=== PATIENT | female | born 1970 | race Caucasian/White ===

== ENCOUNTER 2021-01-28 16:48 | Inpatient (IN) ==
[2021-01-28] MEDS ORDERED: Acetaminophen 325 MG TABLET PO PRN (21:06)
[2021-01-28] MEDS ORDERED: Naloxone 0.4 MG/ML INJ IVP PRN (21:06)
[2021-01-28] MEDS ORDERED: Perflutren Lipid Microsphere 1.3 ML in 0.9 % Sodium Chloride 8.7 ML IVP PRN (21:13)
[2021-01-28] MEDS ORDERED: 0.9 % Sodium Chloride 1,000 ML IVC SCH (21:15)
[2021-01-28] MEDS ORDERED: Norepinephrine 4 MG/254 ML IV.SOLN IVC SCH (21:15)
[2021-01-28] MEDS ORDERED: Vancomycin 1,500 MG/265 ML IV.SOLN IVPB ONE ×2 (23:00)
[2021-01-28] MEDS: Norepinephrine 4 MG/254 ML IV.SOLN IVC SCH (23:01)
[2021-01-29 00:17] LABS: Adenovirus Not Detected (Not Detect); Coronavirus 229E Not Detected (Not Detect); Coronavirus HKU1 Not Detected (Not Detect); Coronavirus NL63 Not Detected (Not Detect); Coronavirus OC43 Not Detected (Not Detect); Human Metapneumovirus Not Detected (Not Detect); Human Rhinovirus/Enterovirus Not Detected (Not Detect); Influenza A Subtype 2009 H1 Not Detected (Not Detect); Influenza B Not Detected (Not Detect); Parainfluenza Virus 1 Not Detected (Not Detect); SARS-CoV-2 Not Detected (Not Detect)
[2021-01-29 00:18] LABS: Bordetella Pertussis Not Detected (Not Detect); Chlamydophila pneumoniae Not Detected (Not Detect); Mycoplasma pneumoniae Not Detected (Not Detect); Parainfluenza Virus 2 Not Detected (Not Detect); Parainfluenza Virus 3 Not Detected (Not Detect); Parainfluenza Virus 4 Not Detected (Not Detect); Respiratory Syncytial Virus Not Detected (Not Detect)
[2021-01-29] MEDS: Piperacillin/Tazobactam 3.375 GM in 0.9 % Sodium Chloride Mini Bag 100 ML IVPB SCH ×3 (00:42→15:49)
[2021-01-29 02:31] LABS: Red Cell Distribution Width 12.8 % (11.5-14.5); Segmented Neutrophils % 85.8 %
[2021-01-29 02:33] LABS: Basophils % 0.3 %; Eosinophils % 0.2 %; Hematocrit 33.1 % (35.3-44.9); Immature Platelets 13.6 % (1.1-6.1); Lymphocytes # 0.6 K/mcL (0.6-4.6); Lymphocytes % 9.2 %; Mean Corpuscular HGB Conc 36.3 g/dL (31.6-35.5); Mean Corpuscular Hemoglobin 33.3 pg (28.0-33.3); Mean Corpuscular Volume 91.9 fL (83.0-100.0); Mean Platelet Volume 12.9 fL (9.4-12.4); Monocytes # 0.2 K/mcL (0.0-1.3); Monocytes % 3.5 %; Neutrophils # 5.3 K/mcL (1.6-8.9); White Blood Count 6.2 K/mcL (4.3-11.1)
[2021-01-29 02:37] LABS: Platelet Count 62 K/mcL (140-400)
[2021-01-29 02:41] LABS: INR 1.6; Prothrombin Time 18.2 Seconds (9.4-12.1)
[2021-01-29 02:54] LABS: Amylase 48 Units/L (29-103); Lipase 125 Units/L (11-82)
[2021-01-29 03:10] LABS: Alkaline Phosphatase 91 Units/L (34-104); BUN/Creatinine Ratio 19 (6-26); Bilirubin,Direct 2.6 mg/dL (0.0-0.2); Bilirubin,Indirect 1.1 mg/dL (0.0-1.0); Bilirubin,Total 3.7 mg/dL (0.3-1.0); Blood Urea Nitrogen 16 mg/dL (6-20); Calcium 6.8 mg/dL (8.6-10.3); Carbon Dioxide 19 mEq/L (23-29); Chloride 97 mEq/L (98-107); Glucose 105 mg/dL (70-105); Magnesium 1.9 mg/dL (1.6-2.6); Osmolality,Calculated 264 (280-300); Potassium 3.3 mEq/L (3.5-5.1); Sodium 126 mEq/L (136-145); eGFR For African Americans > 60 (> 60); eGFR For Non-African Americans > 60 (> 60)
[2021-01-29 03:11] LABS: Alanine Aminotransferase 339 Units/L (7-52); Albumin 2.5 g/dL (3.5-5.7); Albumin/Globulin Ratio 1.1 (1.1-2.2); Aspartate Amino Transferase 1297 Units/L (13-39); Globulin 2.3 g/dL (2.4-3.5); Platelet Estimate Decreased (Normal); Total Protein 4.8 g/dL (6.4-8.9)
[2021-01-29] MEDS ORDERED: 0.9 % Sodium Chloride 1,000 ML IVC SCH ×2 (03:30→10:48)
[2021-01-29] MEDS ORDERED: *HR* LORazepam 2 MG/ML VIAL ONE ×2 (04:35→05:01)
[2021-01-29] MEDS ORDERED: Haloperidol Lactate 5 MG/ML VIAL IVP ONE (05:30)
[2021-01-29] MEDS ORDERED: *HR* LORazepam 2 MG/ML VIAL IVP ONE ×2 (05:52→05:53)
[2021-01-29] MEDS: Norepinephrine 4 MG/254 ML IV.SOLN IVC SCH ×3 (06:03→21:52)
[2021-01-29] MEDS: *HR* Enoxaparin 40 MG/0.4 ML SYRINGE SQ SCH (06:36)
[2021-01-29] MEDS ORDERED: *HR* LORazepam 2 MG/ML VIAL IVP PRN (06:43)
[2021-01-29] MEDS: *HR* LORazepam 2 MG/ML VIAL IVP PRN (07:27)
[2021-01-29 09:14] LABS: Hemoglobin 12.6 g/dL (11.5-15.4); Red Cell Distribution Width 13.1 % (11.5-14.5)
[2021-01-29 09:15] LABS: Hematocrit 34.8 % (35.3-44.9); Immature Platelets 10.7 % (1.1-6.1); Mean Corpuscular HGB Conc 36.2 g/dL (31.6-35.5); Mean Corpuscular Hemoglobin 33.3 pg (28.0-33.3); Mean Corpuscular Volume 92.1 fL (83.0-100.0); Red Blood Count 3.78 M/mcL (3.82-4.97); White Blood Count 5.3 K/mcL (4.3-11.1)
[2021-01-29 09:37] LABS: Platelet Count 60 K/mcL (140-400)
[2021-01-29] MEDS ORDERED: Ketorolac 30 MG/ML VIAL IVP ONE (09:58)
[2021-01-29] MEDS: Vancomycin 1,500 MG/265 ML IV.SOLN IVPB SCH ×2 (10:17→21:54)
[2021-01-29 10:22] LABS: Alanine Aminotransferase 325 Units/L (7-52); Albumin 2.5 g/dL (3.5-5.7); Alkaline Phosphatase 95 Units/L (34-104); Aspartate Amino Transferase 1234 Units/L (13-39); BUN/Creatinine Ratio 16 (6-26); Bilirubin,Total 3.7 mg/dL (0.3-1.0); Blood Urea Nitrogen 15 mg/dL (6-20); Calcium 7.1 mg/dL (8.6-10.3); Carbon Dioxide 21 mEq/L (23-29); Chloride 97 mEq/L (98-107); Globulin 2.4 g/dL (2.4-3.5); Glucose 95 mg/dL (70-105); Osmolality,Calculated 263 (280-300); Potassium 3.6 mEq/L (3.5-5.1); Sodium 126 mEq/L (136-145); Total Protein 4.9 g/dL (6.4-8.9); eGFR For African Americans > 60 (> 60); eGFR For Non-African Americans > 60 (> 60)
[2021-01-29 10:39] LABS: Platelet Estimate Decreased (Normal); Toxic Granulation Present (Not Present)
[2021-01-29] MEDS ORDERED: Isovue-370 500 ML BOTTLE IVP ONE (10:47)
[2021-01-29] MEDS ORDERED: Lidocaine -MPF 1% 5 ML AMPUL INFILT ONE (10:59)
[2021-01-29 11:20] LABS: Lymphocytes # 0.5 K/mcL (0.6-4.6); Monocytes # 0.1 K/mcL (0.0-1.3); Neutrophils # 4.5 K/mcL (1.6-8.9)
[2021-01-29] MEDS ORDERED: Azithromycin 500 MG in 0.9 % Sodium Chloride 250 ML IVPB SCH (16:00)
[2021-01-30] MEDS: *HR* LORazepam 2 MG/ML VIAL IVP PRN ×4 (01:16→06:10)
[2021-01-30] MEDS: Piperacillin/Tazobactam 3.375 GM in 0.9 % Sodium Chloride Mini Bag 100 ML IVPB SCH ×3 (01:16→16:01)
[2021-01-30] MEDS: Norepinephrine 4 MG/254 ML IV.SOLN IVC SCH ×2 (03:24→09:29)
[2021-01-30 05:17] LABS: Basophils % 0.8 %; Hemoglobin 11.6 g/dL (11.5-15.4); Immature Granulocytes % 1.7 % (0-4); Immature Platelets 9.6 % (1.1-6.1); Lymphocytes # 0.8 K/mcL (0.6-4.6); Mean Corpuscular HGB Conc 36.3 g/dL (31.6-35.5); Mean Corpuscular Hemoglobin 33.2 pg (28.0-33.3); Mean Corpuscular Volume 91.7 fL (83.0-100.0); Mean Platelet Volume 11.4 fL (9.4-12.4); Monocytes # 0.2 K/mcL (0.0-1.3); Monocytes % 3.8 %; Red Blood Count 3.49 M/mcL (3.82-4.97); Red Cell Distribution Width 13.3 % (11.5-14.5); Segmented Neutrophils % 78.7 %; White Blood Count 5.3 K/mcL (4.3-11.1)
[2021-01-30 05:22] LABS: Neutrophils # 4.2 K/mcL (1.6-8.9); Platelet Count 62 K/mcL (140-400)
[2021-01-30 06:02] LABS: Platelet Estimate Decreased (Normal); Reactive Lymphocytes Present (Not Present)
[2021-01-30 06:13] LABS: BUN/Creatinine Ratio 19 (6-26); Blood Urea Nitrogen 14 mg/dL (6-20); Carbon Dioxide 20 mEq/L (23-29); Chloride 103 mEq/L (98-107); Glucose 75 mg/dL (70-105); Osmolality,Calculated 273 (280-300); Potassium 3.8 mEq/L (3.5-5.1); Sodium 132 mEq/L (136-145); eGFR For African Americans > 60 (> 60); eGFR For Non-African Americans > 60 (> 60)
[2021-01-30] MEDS: *HR* Enoxaparin 40 MG/0.4 ML SYRINGE SQ SCH (06:17)
[2021-01-30] MEDS ORDERED: Dexmedetomidine HCl 400 MCG/100 ML MLS IVC SCH (06:30)
[2021-01-30] MEDS ORDERED: Dexmedetomidine HCl 400 MCG/100 ML MLS IVC ONE (06:35)
[2021-01-30] MEDS: D5% in Water 1,000 ML IVC SCH ×2 (06:47→19:43)
[2021-01-30] MEDS ORDERED: *HR* Dextrose 50 % in Water (Syg) 50 ML SYRINGE ONE (07:18)
[2021-01-30] MEDS ORDERED: *HR* Dextrose 50 % in Water (Syg) 50 ML SYRINGE IVP ONE (07:21)
[2021-01-30] MEDS ORDERED: Perflutren Lipid Microsphere 1.3 ML in 0.9 % Sodium Chloride 8.7 ML IVP PRN (08:34)
[2021-01-30] MEDS ORDERED: Artificial Tears SOLN 15 ML BOTTLE BOTH EYES PRN (08:42)
[2021-01-30] MEDS ORDERED: FentaNYL (PF) 1,000 MCG/100 ML IV.SOLN IVC SCH (08:45)
[2021-01-30] MEDS: FentaNYL (PF) 1,000 MCG/100 ML IV.SOLN IVC SCH ×3 (08:45→20:29)
[2021-01-30 08:58] LABS: Magnesium 2.2 mg/dL (1.6-2.6)
[2021-01-30] MEDS: Chlorhexidine Rinse 15 ML MOUTHWASH MM SCH ×2 (09:18→19:43)
[2021-01-30] MEDS: Pantoprazole 40 MG VIAL IVP SCH (09:18)
[2021-01-30 09:24] LABS: Hemoglobin 11.6 g/dL (11.5-15.4); Mean Corpuscular Hemoglobin 33.4 pg (28.0-33.3); Mean Platelet Volume 11.6 fL (9.4-12.4); Red Blood Count 3.47 M/mcL (3.82-4.97); Red Cell Distribution Width 13.3 % (11.5-14.5)
[2021-01-30 09:26] LABS: Hematocrit 31.6 % (35.3-44.9); Mean Corpuscular HGB Conc 36.7 g/dL (31.6-35.5); Mean Corpuscular Volume 91.1 fL (83.0-100.0); White Blood Count 4.9 K/mcL (4.3-11.1)
[2021-01-30 09:32] LABS: VBG Ionized Calcium 1.04 mmol/L (1.15-1.35)
[2021-01-30 09:38] LABS: INR 1.5; Prothrombin Time 16.8 Seconds (9.4-12.1)
[2021-01-30 10:26] LABS: Alanine Aminotransferase 317 Units/L (7-52); Albumin 2.2 g/dL (3.5-5.7); Albumin/Globulin Ratio 0.9 (1.1-2.2); Alkaline Phosphatase 110 Units/L (34-104); Aspartate Amino Transferase 1169 Units/L (13-39); BUN/Creatinine Ratio 19 (6-26); Bilirubin,Total 3.8 mg/dL (0.3-1.0); Blood Urea Nitrogen 15 mg/dL (6-20); Carbon Dioxide 20 mEq/L (23-29); Chloride 102 mEq/L (98-107); Globulin 2.5 g/dL (2.4-3.5); Glucose 101 mg/dL (70-105); Osmolality,Calculated 273 (280-300); Potassium 3.9 mEq/L (3.5-5.1); Sodium 131 mEq/L (136-145); Total Protein 4.7 g/dL (6.4-8.9); Vancomycin,Trough 12 mcg/mL (5-10); eGFR For African Americans > 60 (> 60); eGFR For Non-African Americans > 60 (> 60)
[2021-01-30 10:54] LABS: ABG Base Excess -4 mEq/L (-2 to 3); ABG HCO3 20 mEq/L (21-27); ABG Oxygen Saturation 100 % (95-98); ABG PCO2 31 mmHg (35-45); ABG PH 7.41 pH Units (7.32-7.45); ABG PO2 269 mmHg (85-104); ABG TCO2 21 mEq/L (20-26); Blood Gas Modality AF; Blood Gas VT 450 cc
[2021-01-30] MEDS: Artificial Tears SOLN 15 ML BOTTLE BOTH EYES SCH ×4 (11:25→23:47)
[2021-01-30] MEDS ORDERED: Albumin Human 5% 25.0 GM/500 ML IV.SOLN ONE (12:18)
[2021-01-30] MEDS: Albumin Human 5% 12.5 GM/250 ML IV.SOLN IVC SCH ×4 (12:41→22:44)
[2021-01-30] MEDS: Vancomycin 1,500 MG/265 ML IV.SOLN IVPB SCH ×2 (12:54→22:59)
[2021-01-30] MEDS: Norepinephrine 8 MG in 0.9 % Sodium Chloride 250 ML IVC SCH ×2 (13:15→22:42)
[2021-01-30] MEDS: Calcium Gluconate 1gm/50mL 1 GM/50 ML BAG IVPB SCH ×2 (13:24→14:24)
[2021-01-30] MEDS ORDERED: Isovue-370 500 ML BOTTLE IVP ONE ×2 (16:24→16:30)
[2021-01-30] MEDS ORDERED: Acetaminophen IV 500 MG/50 ML BAG IVPB ONE (18:35)
[2021-01-30] MEDS ORDERED: *HR* Midazolam HCl 5 MG/5 ML VIAL IVP ONE ×4 (18:41→21:32)
[2021-01-30] MEDS: Midazolam HCl 50 MG/100 ML IV.SOLN IVC SCH (20:17)
[2021-01-30] MEDS ORDERED: *HR* Etomidate 20 MG/10 ML AMPUL IVP ONE (21:32)
[2021-01-30] MEDS ORDERED: *HR* Propofol 200 MG/20 ML VIAL IVP ONE (21:32)
[2021-01-30] MEDS: Cefepime HCl 2,000 MG in Water for inj. (sterile) 20 ML IVP SCH (23:46)
[2021-01-30] MEDS: MetroNIDAZOLE 500 MG/100 ML 500 MG/100 ML BAG IVPB SCH (23:47)
[2021-01-31] MEDS: FentaNYL (PF) 1,000 MCG/100 ML IV.SOLN IVC SCH ×4 (02:33→19:05)
[2021-01-31 03:08] LABS: Mean Corpuscular Hemoglobin 34.1 pg (28.0-33.3)
[2021-01-31 03:10] LABS: Basophils # 0.1 K/mcL (0.0-0.2); Basophils % 0.8 %; Hematocrit 32.2 % (35.3-44.9); Hemoglobin 11.5 g/dL (11.5-15.4); Immature Platelets 8.4 % (1.1-6.1); Lymphocytes # 0.7 K/mcL (0.6-4.6); Lymphocytes % 10.3 %; Mean Corpuscular HGB Conc 35.7 g/dL (31.6-35.5); Mean Corpuscular Volume 95.5 fL (83.0-100.0); Mean Platelet Volume 11.3 fL (9.4-12.4); Monocytes # 0.2 K/mcL (0.0-1.3); Monocytes % 2.6 %; Neutrophils # 5.4 K/mcL (1.6-8.9); Platelet Count 69 K/mcL (140-400); Red Blood Count 3.37 M/mcL (3.82-4.97); Red Cell Distribution Width 14.4 % (11.5-14.5); Segmented Neutrophils % 84.3 %; White Blood Count 6.4 K/mcL (4.3-11.1)
[2021-01-31 03:24] LABS: BUN/Creatinine Ratio 18 (6-26); Blood Urea Nitrogen 19 mg/dL (6-20); Calcium 7.3 mg/dL (8.6-10.3); Carbon Dioxide 18 mEq/L (23-29); Chloride 105 mEq/L (98-107); Glucose 85 mg/dL (70-105); Magnesium 2.4 mg/dL (1.6-2.6); Osmolality,Calculated 276 (280-300); Sodium 132 mEq/L (136-145); eGFR For African Americans > 60 (> 60); eGFR For Non-African Americans 54 (> 60)
[2021-01-31 03:31] LABS: Platelet Estimate Decreased (Normal)
[2021-01-31] MEDS: Artificial Tears SOLN 15 ML BOTTLE BOTH EYES SCH ×5 (04:26→21:16)
[2021-01-31] MEDS: Norepinephrine 8 MG in 0.9 % Sodium Chloride 250 ML IVC SCH ×3 (04:27→18:04)
[2021-01-31 04:50] LABS: ABG Base Excess -8 mEq/L (-2 to 3); ABG HCO3 18 mEq/L (21-27); ABG Oxygen Saturation 93 % (95-98); ABG PCO2 38 mmHg (35-45); ABG PH 7.29 pH Units (7.32-7.45); ABG PO2 73 mmHg (85-104); ABG TCO2 20 mEq/L (20-26); Blood Gas VT 450 cc
[2021-01-31] MEDS: Midazolam HCl 50 MG/100 ML IV.SOLN IVC SCH ×2 (05:46→16:30)
[2021-01-31] MEDS: *HR* Enoxaparin 40 MG/0.4 ML SYRINGE SQ SCH (06:44)
[2021-01-31] MEDS: Albumin Human 5% 12.5 GM/250 ML IV.SOLN IVC SCH ×2 (06:44→08:13)
[2021-01-31] MEDS: MetroNIDAZOLE 500 MG/100 ML 500 MG/100 ML BAG IVPB SCH ×2 (08:02→16:23)
[2021-01-31] MEDS: Pantoprazole 40 MG VIAL IVP SCH (08:03)
[2021-01-31] MEDS: Cefepime HCl 2,000 MG in Water for inj. (sterile) 20 ML IVP SCH ×2 (08:03→16:24)
[2021-01-31] MEDS: Chlorhexidine Rinse 15 ML MOUTHWASH MM SCH ×2 (08:04→21:15)
[2021-01-31 11:49] LABS: VBG Ionized Calcium 1.06 mmol/L (1.15-1.35)
[2021-01-31] MEDS: Doxycycline 100 MG in 0.9 % Sodium Chloride Mini Bag 100 ML IVPB SCH (11:53)
[2021-01-31] MEDS: Vancomycin 1,500 MG/265 ML IV.SOLN IVPB SCH (11:54)
[2021-01-31] MEDS: Folic Acid 1 MG in 0.9 % Sodium Chloride 50 ML IVPB SCH (11:54)
[2021-01-31 12:01] LABS: INR 1.4; Prothrombin Time 15.1 Seconds (9.4-12.1)
[2021-01-31] MEDS: Calcium Gluconate 1gm/50mL 1 GM/50 ML BAG IVPB SCH ×2 (13:16→14:08)
[2021-01-31 13:21] LABS: Hepatitis B Surface Antigen Nonreactive (Nonreactive)
[2021-01-31 13:51] LABS: Hepatitis A Antibody IgM Nonreactive (Nonreactive); Hepatitis B Core IgM Nonreactive (Nonreactive)
[2021-01-31] MEDS: Thiamine (B-1) 500 MG in 0.9 % Sodium Chloride 50 ML IVPB SCH ×2 (14:08→21:17)
[2021-01-31 18:04] LABS: Hepatitis C Virus Antibody Reactive (Nonreactive)
[2021-02-01] MEDS: Doxycycline 100 MG in 0.9 % Sodium Chloride Mini Bag 100 ML IVPB SCH ×3 (00:08→23:00)
[2021-02-01] MEDS: MetroNIDAZOLE 500 MG/100 ML 500 MG/100 ML BAG IVPB SCH ×4 (00:10→23:02)
[2021-02-01] MEDS: Cefepime HCl 2,000 MG in Water for inj. (sterile) 20 ML IVP SCH ×3 (00:17→18:08)
[2021-02-01] MEDS: Artificial Tears SOLN 15 ML BOTTLE BOTH EYES SCH ×7 (00:24→23:00)
[2021-02-01] MEDS: FentaNYL (PF) 1,000 MCG/100 ML IV.SOLN IVC SCH ×4 (01:17→23:01)
[2021-02-01] MEDS: Norepinephrine 8 MG in 0.9 % Sodium Chloride 250 ML IVC SCH ×5 (01:44→23:01)
[2021-02-01] MEDS: Midazolam HCl 50 MG/100 ML IV.SOLN IVC SCH ×3 (02:56→21:52)
[2021-02-01] MEDS: Vancomycin 1,500 MG/265 ML IV.SOLN IVPB SCH ×3 (02:59→22:09)
[2021-02-01 04:03] LABS: VBG Ionized Calcium 1.05 mmol/L (1.15-1.35)
[2021-02-01 05:04] LABS: Hematocrit 31.3 % (35.3-44.9); Immature Platelets 9.5 % (1.1-6.1); Mean Corpuscular HGB Conc 35.1 g/dL (31.6-35.5); Mean Corpuscular Hemoglobin 34.8 pg (28.0-33.3); Mean Corpuscular Volume 99.1 fL (83.0-100.0); Mean Platelet Volume 11.6 fL (9.4-12.4); Red Blood Count 3.16 M/mcL (3.82-4.97); Red Cell Distribution Width 15.5 % (11.5-14.5)
[2021-02-01] MEDS: Vasopressin 40 UNIT in D5% in Water 100 ML IVC SCH ×2 (05:19→20:13)
[2021-02-01 05:21] LABS: ABG Base Excess -10 mEq/L (-2 to 3); ABG HCO3 17 mEq/L (21-27); ABG Oxygen Saturation 95 % (95-98); ABG PCO2 44 mmHg (35-45); ABG PO2 94 mmHg (85-104); ABG TCO2 19 mEq/L (20-26); Blood Gas Modality ASSIST CONTROL; Blood Gas VT 450 cc
[2021-02-01 05:32] LABS: Albumin 2.3 g/dL (3.5-5.7); Bilirubin,Total 3.9 mg/dL (0.3-1.0); Calcium 7.3 mg/dL (8.6-10.3); Globulin 2.4 g/dL (2.4-3.5); Potassium 4.1 mEq/L (3.5-5.1); Total Protein 4.7 g/dL (6.4-8.9)
[2021-02-01] MEDS ORDERED: 0.9 % Sodium Chloride 1,000 ML IVC SCH (06:15)
[2021-02-01] MEDS: *HR* Enoxaparin 40 MG/0.4 ML SYRINGE SQ SCH (06:35)
[2021-02-01] MEDS ORDERED: 0.9 % Sodium Chloride 250 ML IVC SCH (07:45)
[2021-02-01] MEDS: Chlorhexidine Rinse 15 ML MOUTHWASH MM SCH ×2 (08:16→20:12)
[2021-02-01] MEDS: Pantoprazole 40 MG VIAL IVP SCH (08:22)
[2021-02-01 08:45] LABS: INR 1.4; Prothrombin Time 15.6 Seconds (9.4-12.1)
[2021-02-01 08:59] LABS: D-Dimer 5282 ng/mLFEU (0-500)
[2021-02-01 09:01] LABS: Fibrinogen 89 mg/dL (169-393)
[2021-02-01] MEDS: Folic Acid 1 MG in 0.9 % Sodium Chloride 50 ML IVPB SCH (09:41)
[2021-02-01] MEDS: Hydrocortisone Sodium Succ 100 MG/2 ML VIAL IVP SCH ×2 (09:43→18:08)
[2021-02-01] MEDS: Thiamine (B-1) 500 MG in 0.9 % Sodium Chloride 50 ML IVPB SCH ×3 (11:00→20:12)
[2021-02-01 13:20] LABS: Sodium, Urine 18.5 mEq/L
[2021-02-01] MEDS ORDERED: 0.9 % Sodium Chloride 250 ML ONE (13:46)
[2021-02-01] MEDS ORDERED: 0.9 % Sodium Chloride 1,000 ML IVC ONE (17:13)
[2021-02-02] MEDS: Hydrocortisone Sodium Succ 100 MG/2 ML VIAL IVP SCH ×4 (00:01→23:35)
[2021-02-02] MEDS: Artificial Tears SOLN 15 ML BOTTLE BOTH EYES SCH ×6 (03:03→23:07)
[2021-02-02 03:29] LABS: VBG Ionized Calcium 0.96 mmol/L (1.15-1.35)
[2021-02-02 03:48] LABS: Hemoglobin 10.8 g/dL (11.5-15.4); Mean Corpuscular Volume 97.8 fL (83.0-100.0)
[2021-02-02 03:50] LABS: Hematocrit 31.2 % (35.3-44.9); Immature Platelets 9.8 % (1.1-6.1); Mean Corpuscular HGB Conc 34.6 g/dL (31.6-35.5); Mean Corpuscular Hemoglobin 33.9 pg (28.0-33.3); Mean Platelet Volume 11.4 fL (9.4-12.4); Red Blood Count 3.19 M/mcL (3.82-4.97); Red Cell Distribution Width 15.9 % (11.5-14.5)
[2021-02-02 03:54] LABS: Albumin 2.2 g/dL (3.5-5.7); Albumin/Globulin Ratio 0.8 (1.1-2.2); Bilirubin,Total 3.8 mg/dL (0.3-1.0); Calcium 6.9 mg/dL (8.6-10.3); Globulin 2.8 g/dL (2.4-3.5); Potassium 4.6 mEq/L (3.5-5.1)
[2021-02-02] MEDS: Norepinephrine 8 MG in 0.9 % Sodium Chloride 250 ML IVC SCH ×4 (04:00→19:01)
[2021-02-02] MEDS: Cefepime HCl 2,000 MG in Water for inj. (sterile) 20 ML IVP SCH ×2 (05:01→16:56)
[2021-02-02] MEDS: FentaNYL (PF) 1,000 MCG/100 ML IV.SOLN IVC SCH ×3 (05:14→18:39)
[2021-02-02 05:27] LABS: ABG Base Excess -12 mEq/L (-2 to 3); ABG HCO3 14 mEq/L (21-27); ABG Oxygen Saturation 88 % (95-98); ABG PCO2 32 mmHg (35-45); ABG PH 7.26 pH Units (7.32-7.45); ABG PO2 62 mmHg (85-104); ABG TCO2 15 mEq/L (20-26); Blood Gas Modality CPAP/PS; Blood Gas Pressure Support 10 cm H2O
[2021-02-02] MEDS: Midazolam HCl 50 MG/100 ML IV.SOLN IVC SCH ×2 (06:53→17:56)
[2021-02-02] MEDS: MetroNIDAZOLE 500 MG/100 ML 500 MG/100 ML BAG IVPB SCH ×3 (08:29→23:19)
[2021-02-02] MEDS: Pantoprazole 40 MG VIAL IVP SCH (08:30)
[2021-02-02] MEDS: Chlorhexidine Rinse 15 ML MOUTHWASH MM SCH ×2 (08:30→19:37)
[2021-02-02] MEDS: Sodium Bicarbonate 150 MEQ in D5% in Water 1,000 ML IVC SCH ×2 (08:40→22:26)
[2021-02-02] MEDS: Folic Acid 1 MG in 0.9 % Sodium Chloride 50 ML IVPB SCH (08:41)
[2021-02-02] MEDS: Thiamine (B-1) 500 MG in 0.9 % Sodium Chloride 50 ML IVPB SCH ×3 (08:41→20:12)
[2021-02-02] MEDS: Doxycycline 100 MG in 0.9 % Sodium Chloride Mini Bag 100 ML IVPB SCH ×2 (12:45→23:18)
[2021-02-02] MEDS: Vasopressin 40 UNIT in D5% in Water 100 ML IVC SCH (14:35)
[2021-02-03] MEDS: Hydrocortisone Sodium Succ 100 MG/2 ML VIAL IVP SCH ×3 (00:07→17:25)
[2021-02-03] MEDS: Norepinephrine 8 MG in 0.9 % Sodium Chloride 250 ML IVC SCH ×2 (00:07→20:02)
[2021-02-03] MEDS: FentaNYL (PF) 1,000 MCG/100 ML IV.SOLN IVC SCH ×5 (00:35→20:14)
[2021-02-03] MEDS: Artificial Tears SOLN 15 ML BOTTLE BOTH EYES SCH ×6 (03:06→23:06)
[2021-02-03] MEDS: Midazolam HCl 50 MG/100 ML IV.SOLN IVC SCH ×3 (03:11→23:05)
[2021-02-03 03:20] LABS: Mean Platelet Volume 11.1 fL (9.4-12.4)
[2021-02-03 03:22] LABS: Hematocrit 28.7 % (35.3-44.9); Mean Corpuscular HGB Conc 34.8 g/dL (31.6-35.5); Mean Corpuscular Hemoglobin 33.8 pg (28.0-33.3); Red Blood Count 2.96 M/mcL (3.82-4.97); Red Cell Distribution Width 16.4 % (11.5-14.5); White Blood Count 16.5 K/mcL (4.3-11.1)
[2021-02-03 03:22] LABS: VBG Ionized Calcium 0.93 mmol/L (1.15-1.35)
[2021-02-03 03:50] LABS: Albumin 2.2 g/dL (3.5-5.7); Albumin/Globulin Ratio 0.8 (1.1-2.2); Bilirubin,Total 4.3 mg/dL (0.3-1.0); Calcium 6.5 mg/dL (8.6-10.3); Globulin 2.9 g/dL (2.4-3.5); Potassium 4.6 mEq/L (3.5-5.1); Total Protein 5.1 g/dL (6.4-8.9)
[2021-02-03] MEDS ORDERED: Dextrose Gel 15 GM/37.5 ML TUBE PO PRN ×2 (04:07)
[2021-02-03] MEDS ORDERED: *HR* Dextrose 50 % in Water (Syg) 50 ML SYRINGE IVP PRN (04:07)
[2021-02-03] MEDS ORDERED: D5% in Water 1,000 ML IVC PRN (04:07)
[2021-02-03 04:58] LABS: ABG Base Excess -10 mEq/L (-2 to 3); ABG HCO3 17 mEq/L (21-27); ABG Oxygen Saturation 87 % (95-98); ABG PCO2 43 mmHg (35-45); ABG PH 7.22 pH Units (7.32-7.45); ABG PO2 63 mmHg (85-104); ABG TCO2 19 mEq/L (20-26); Blood Gas Modality CPAP/PS; Blood Gas Pressure Support 12 cm H2O
[2021-02-03] MEDS: Cefepime HCl 2,000 MG in Water for inj. (sterile) 20 ML IVP SCH ×2 (05:01→18:05)
[2021-02-03] MEDS: Insulin LISPRO 300 UNITS/3 ML VIAL SUBQ SCH ×4 (05:05→23:07)
[2021-02-03] MEDS: Vasopressin 40 UNIT in D5% in Water 100 ML IVC SCH ×2 (05:48→22:00)
[2021-02-03 05:58] LABS: Acinetobacter baumannii by PCR Not Detected (Not Detect); Candida albicans by PCR Not Detected (Not Detect); Candida glabrata by PCR Not Detected (Not Detect); Candida krusei by PCR Not Detected (Not Detect); Candida parapsilosis by PCR Not Detected (Not Detect); Enterobacter cloacae Cmplx PCR Not Detected (Not Detect); Enterobacteriaceae by PCR Not Detected (Not Detect); Enterococcus by PCR Not Detected (Not Detect); Escherichia coli by PCR Not Detected (Not Detect); Klebsiella oxytoca by PCR Not Detected (Not Detect); Klebsiella pneumoniae by PCR Not Detected (Not Detect); Proteus by PCR Not Detected (Not Detect); Pseudomonas aeruginosa by PCR Not Detected (Not Detect); Serratia marcescens by PCR Not Detected (Not Detect); Staphylococcus aureus by PCR Not Detected (Not Detect); Staphylococcus by PCR Not Detected (Not Detect); Streptococcus agalactiae(B)PCR Not Detected (Not Detect); Streptococcus by PCR Not Detected (Not Detect); Streptococcus pneumoniae PCR Not Detected (Not Detect); Streptococcus pyogenes (A) PCR Not Detected (Not Detect); mecA Methicillin-Resist Gene Not Detected (Not Detect); vanA/B Vancomycin-Resist Genes Not Detected (Not Detect)
[2021-02-03 05:59] LABS: Candida tropicalis by PCR Not Detected (Not Detect)
[2021-02-03 07:02] LABS: INR 1.3; Prothrombin Time 14.2 Seconds (9.4-12.1)
[2021-02-03] MEDS ORDERED: Ipratropium/Albuterol Neb 3 ML IH PRN (07:38)
[2021-02-03] MEDS: MetroNIDAZOLE 500 MG/100 ML 500 MG/100 ML BAG IVPB SCH ×3 (07:51→23:05)
[2021-02-03] MEDS: Chlorhexidine Rinse 15 ML MOUTHWASH MM SCH ×2 (07:51→20:02)
[2021-02-03] MEDS: Pantoprazole 40 MG VIAL IVP SCH (07:51)
[2021-02-03] MEDS: Ipratropium/Albuterol Neb 3 ML IH SCH ×5 (07:52→23:58)
[2021-02-03] MEDS: Thiamine (B-1) 500 MG in 0.9 % Sodium Chloride 50 ML IVPB SCH ×2 (08:00→14:17)
[2021-02-03] MEDS: Folic Acid 1 MG in 0.9 % Sodium Chloride 50 ML IVPB SCH (08:00)
[2021-02-03] MEDS ORDERED: Ipratropium/Albuterol Neb 3 ML IH SCH (08:00)
[2021-02-03] MEDS: Calcium Gluconate 1gm/50mL 1 GM/50 ML BAG IVPB SCH ×2 (11:43→12:18)
[2021-02-03] MEDS ORDERED: 0.9 % Sodium Chloride 250 ML ONE (12:10)
[2021-02-03] MEDS: Doxycycline 100 MG in 0.9 % Sodium Chloride Mini Bag 100 ML IVPB SCH ×2 (12:15→23:06)
[2021-02-03] MEDS: Sodium Bicarbonate 150 MEQ in D5% in Water 1,000 ML IVC SCH (13:07)
[2021-02-04] MEDS: FentaNYL (PF) 1,000 MCG/100 ML IV.SOLN IVC SCH ×4 (01:01→21:33)
[2021-02-04] MEDS: Artificial Tears SOLN 15 ML BOTTLE BOTH EYES SCH ×6 (03:17→23:38)
[2021-02-04] MEDS: Sodium Bicarbonate 150 MEQ in D5% in Water 1,000 ML IVC SCH (03:18)
[2021-02-04 03:20] LABS: Basophils % 0.2 %; Hemoglobin 9.6 g/dL (11.5-15.4); Mean Corpuscular Hemoglobin 33.6 pg (28.0-33.3); Mean Platelet Volume 11.3 fL (9.4-12.4); Nucleated Red Blood Cells 1.7 /100 WBC (0); Red Blood Count 2.86 M/mcL (3.82-4.97); Red Cell Distribution Width 17.5 % (11.5-14.5)
[2021-02-04 03:22] LABS: Eosinophils % 0.1 %; Hematocrit 28.6 % (35.3-44.9); Immature Granulocytes % 3.1 % (0-4); Immature Platelets 9.4 % (1.1-6.1); Lymphocytes # 2.7 K/mcL (0.6-4.6); Lymphocytes % 16.3 %; Mean Corpuscular HGB Conc 33.6 g/dL (31.6-35.5); Monocytes # 1.1 K/mcL (0.0-1.3); Monocytes % 6.8 %; Neutrophils # 12.3 K/mcL (1.6-8.9); Segmented Neutrophils % 73.5 %; White Blood Count 16.7 K/mcL (4.3-11.1)
[2021-02-04 03:34] LABS: Platelet Count 60 K/mcL (140-400)
[2021-02-04 03:42] LABS: Albumin 2.2 g/dL (3.5-5.7); Albumin/Globulin Ratio 0.7 (1.1-2.2); Bilirubin,Total 3.8 mg/dL (0.3-1.0); Calcium 6.7 mg/dL (8.6-10.3); Potassium 5.3 mEq/L (3.5-5.1); Total Protein 5.2 g/dL (6.4-8.9)
[2021-02-04] MEDS: Ipratropium/Albuterol Neb 3 ML IH SCH ×6 (03:48→23:19)
[2021-02-04 04:05] LABS: Platelet Estimate Decreased (Normal); Polychromasia 1+ (Not Present)
[2021-02-04 04:39] LABS: ABG Base Excess -10 mEq/L (-2 to 3); ABG HCO3 18 mEq/L (21-27); ABG Oxygen Saturation 95 % (95-98); ABG PCO2 53 mmHg (35-45); ABG PH 7.14 pH Units (7.32-7.45); ABG PO2 95 mmHg (85-104); ABG TCO2 20 mEq/L (20-26); Blood Gas Modality AF; Blood Gas VT 500 cc
[2021-02-04] MEDS ORDERED: Insulin Human Regular 10 UNIT in 0.9 % Sodium Chloride 10 ML IV ONE (05:03)
[2021-02-04] MEDS: Insulin LISPRO 300 UNITS/3 ML VIAL SUBQ SCH ×4 (05:04→23:56)
[2021-02-04] MEDS ORDERED: *HR* Dextrose 50 % in Water (Syg) 50 ML SYRINGE IVP PRN ×2 (05:06→05:36)
[2021-02-04] MEDS: Cefepime HCl 2,000 MG in Water for inj. (sterile) 20 ML IVP SCH ×2 (05:08→18:06)
[2021-02-04] MEDS: Calcium Gluconate 1gm/50mL 1 GM/50 ML BAG IVPB SCH ×2 (05:21→05:51)
[2021-02-04] MEDS ORDERED: *HR* Dextrose 50 % in Water (Syg) 50 ML SYRINGE IVP STA (05:40)
[2021-02-04 06:48] LABS: INR 1.3; Prothrombin Time 14.3 Seconds (9.4-12.1)
[2021-02-04] MEDS: Chlorhexidine Rinse 15 ML MOUTHWASH MM SCH ×2 (07:39→19:54)
[2021-02-04] MEDS: MetroNIDAZOLE 500 MG/100 ML 500 MG/100 ML BAG IVPB SCH ×3 (07:39→23:52)
[2021-02-04] MEDS: Hydrocortisone Sodium Succ 100 MG/2 ML VIAL IVP SCH ×4 (07:39→23:51)
[2021-02-04] MEDS: Pantoprazole 40 MG VIAL IVP SCH (07:39)
[2021-02-04] MEDS ORDERED: 0.9 % Sodium Chloride 250 ML ONE (08:45)
[2021-02-04] MEDS: Folic Acid 1 MG in 0.9 % Sodium Chloride 50 ML IVPB SCH (08:47)
[2021-02-04] MEDS: Midazolam HCl 50 MG/100 ML IV.SOLN IVC SCH ×2 (10:10→21:21)
[2021-02-04 11:37] LABS: Magnesium 2.6 mg/dL (1.6-2.6); Phosphorous 8.1 mg/dL (2.7-4.5)
[2021-02-04] MEDS: Doxycycline 100 MG in 0.9 % Sodium Chloride Mini Bag 100 ML IVPB SCH (12:17)
[2021-02-04] MEDS ORDERED: D10% in Water 500 ML IVC PRN (12:19)
[2021-02-04] MEDS ORDERED: Heparin 1,000 UNITS/500 mL 500 ML ONE (13:41)
[2021-02-04] MEDS ORDERED: 0.9 % Sodium Chloride 1,000 ML PRIME ONE ×2 (14:30)
[2021-02-04] MEDS ORDERED: Calcium Gluconate 1gm/50mL 1 GM/50 ML BAG IVPB PRN (14:30)
[2021-02-04] MEDS ORDERED: *HR* Heparin 5,000 UNIT/ML VIAL ONE (14:42)
[2021-02-04] MEDS: Calcium Chloride 4,000 MG in 0.9 % Sodium Chloride 1,000 ML CRRT SCH (16:01)
[2021-02-04] MEDS: PrismaSATE BGK 4/2.5 5,000 ML CRRT SCH ×5 (16:02→22:42)
[2021-02-04] MEDS: 0.9 % Sodium Chloride 1,000 ML PRIME SCH ×5 (16:27→21:10)
[2021-02-04] MEDS ORDERED: Clinimix 5%-20% SOLUTION 2,000 ML with MVI, adult with vitamin K 10 ML, Sodium Acetat... IVC SCH (17:00)
[2021-02-04 17:23] LABS: Adenovirus Not Detected (Not Detect); Bordetella Pertussis Not Detected (Not Detect); Chlamydophila pneumoniae Not Detected (Not Detect); Coronavirus 229E Not Detected (Not Detect); Coronavirus HKU1 Not Detected (Not Detect); Coronavirus NL63 Not Detected (Not Detect); Coronavirus OC43 Not Detected (Not Detect); Human Metapneumovirus Not Detected (Not Detect); Human Rhinovirus/Enterovirus Not Detected (Not Detect); Influenza A Subtype 2009 H1 Not Detected (Not Detect); Influenza B Not Detected (Not Detect); Mycoplasma pneumoniae Not Detected (Not Detect); Parainfluenza Virus 1 Not Detected (Not Detect); Parainfluenza Virus 2 Not Detected (Not Detect); Parainfluenza Virus 3 Not Detected (Not Detect); Parainfluenza Virus 4 Not Detected (Not Detect); Respiratory Syncytial Virus Not Detected (Not Detect); SARS-CoV-2 Not Detected (Not Detect)
[2021-02-04] MEDS: Amphotericin B Lipid Complex 400 MG in D5% in Water 250 ML IVPB SCH (17:38)
[2021-02-04] MEDS: Vasopressin 40 UNIT in D5% in Water 100 ML IVC SCH (18:30)
[2021-02-04] MEDS: Norepinephrine 8 MG in 0.9 % Sodium Chloride 250 ML IVC SCH (18:55)
[2021-02-04] MEDS: Calcium Gluconate 1gm/50mL 1 GM/50 ML BAG IVPB PRN ×2 (19:00→22:50)
[2021-02-04 22:23] LABS: VBG Ionized Calcium 0.87 mmol/L (1.15-1.35)
[2021-02-05 00:36] LABS: VBG Ionized Calcium 0.92 mmol/L (1.15-1.35)
[2021-02-05] MEDS: Doxycycline 100 MG in 0.9 % Sodium Chloride Mini Bag 100 ML IVPB SCH ×2 (00:49→12:58)
[2021-02-05] MEDS: Calcium Gluconate 1gm/50mL 1 GM/50 ML BAG IVPB PRN ×4 (01:12→07:29)
[2021-02-05] MEDS: PrismaSATE BGK 4/2.5 5,000 ML CRRT SCH ×5 (01:48→09:30)
[2021-02-05 02:57] LABS: VBG Ionized Calcium 0.91 mmol/L (1.15-1.35)
[2021-02-05] MEDS: FentaNYL (PF) 2,500 MCG/50 ML IV.SOLN IVC SCH ×2 (03:10→10:46)
[2021-02-05] MEDS: Ipratropium/Albuterol Neb 3 ML IH SCH ×5 (03:50→19:50)
[2021-02-05 03:59] LABS: ABG Base Excess -11 mEq/L (-2 to 3); ABG HCO3 19 mEq/L (21-27); ABG Oxygen Saturation 90 % (95-98); ABG PCO2 59 mmHg (35-45); ABG PH 7.11 pH Units (7.32-7.45); ABG PO2 78 mmHg (85-104); ABG TCO2 21 mEq/L (20-26); Blood Gas VT 500 cc
[2021-02-05] MEDS: Artificial Tears SOLN 15 ML BOTTLE BOTH EYES SCH ×5 (04:03→19:43)
[2021-02-05 04:12] LABS: Hematocrit 31.5 % (35.3-44.9); Hemoglobin 10.7 g/dL (11.5-15.4); Immature Platelets 20.6 % (1.1-6.1); Mean Corpuscular Hemoglobin 33.5 pg (28.0-33.3); Mean Corpuscular Volume 98.7 fL (83.0-100.0); Mean Platelet Volume 11.7 fL (9.4-12.4); Nucleated Red Blood Cells 7.9 /100 WBC (0); Red Blood Count 3.19 M/mcL (3.82-4.97); Red Cell Distribution Width 17.6 % (11.5-14.5)
[2021-02-05 04:14] LABS: Platelet Count 67 K/mcL (140-400)
[2021-02-05 04:22] LABS: Fibrinogen 139 mg/dL (169-393)
[2021-02-05 04:25] LABS: D-Dimer 6575 ng/mLFEU (0-500)
[2021-02-05 04:34] LABS: Anisocytosis 1+ (Not Present); Calcium 7.8 mg/dL (8.6-10.3); Magnesium 2.3 mg/dL (1.6-2.6); Monocytes # 0.3 K/mcL (0.0-1.3); Neutrophils # 15.6 K/mcL (1.6-8.9); Phosphorous 3.6 mg/dL (2.7-4.5); Potassium 4.3 mEq/L (3.5-5.1)
[2021-02-05 04:35] LABS: Platelet Estimate Decreased (Normal)
[2021-02-05 05:18] LABS: VBG Ionized Calcium 0.91 mmol/L (1.15-1.35)
[2021-02-05] MEDS: Cefepime HCl 2,000 MG in Water for inj. (sterile) 20 ML IVP SCH (05:58)
[2021-02-05] MEDS: Insulin LISPRO 300 UNITS/3 ML VIAL SUBQ SCH ×3 (05:58→18:23)
[2021-02-05] MEDS: Hydrocortisone Sodium Succ 100 MG/2 ML VIAL IVP SCH ×3 (05:58→17:48)
[2021-02-05] MEDS: Midazolam HCl 50 MG/100 ML IV.SOLN IVC SCH ×2 (06:25→16:27)
[2021-02-05 07:10] LABS: VBG Ionized Calcium 0.97 mmol/L (1.15-1.35)
[2021-02-05] MEDS: *HR* Heparin 5,000 UNIT/ML VIAL IVP PRN ×2 (07:24→12:51)
[2021-02-05] MEDS: 0.9 % Sodium Chloride 1,000 ML PRIME PRN ×2 (07:25→07:37)
[2021-02-05] MEDS: Calcium Chloride 4,000 MG in 0.9 % Sodium Chloride 1,000 ML CRRT SCH (07:28)
[2021-02-05] MEDS: Norepinephrine 8 MG in 0.9 % Sodium Chloride 250 ML IVC SCH ×3 (07:45→19:08)
[2021-02-05] MEDS: Chlorhexidine Rinse 15 ML MOUTHWASH MM SCH (09:00)
[2021-02-05] MEDS: Pantoprazole 40 MG VIAL IVP SCH (09:00)
[2021-02-05] MEDS: MetroNIDAZOLE 500 MG/100 ML 500 MG/100 ML BAG IVPB SCH ×2 (09:09→15:40)
[2021-02-05] MEDS ORDERED: Phenylephrine 10 MG in 0.9 % Sodium Chloride 250 ML IVC SCH (09:45)
[2021-02-05 10:00] LABS: VBG Ionized Calcium 1.04 mmol/L (1.15-1.35)
[2021-02-05] MEDS: Folic Acid 1 MG in 0.9 % Sodium Chloride 50 ML IVPB SCH (10:59)
[2021-02-05] MEDS: Vasopressin 40 UNIT in D5% in Water 100 ML IVC SCH (12:10)
[2021-02-05] MEDS: Phenylephrine 50 MG in 0.9 % Sodium Chloride 250 ML IVC SCH ×2 (12:27→17:00)
[2021-02-05] MEDS ORDERED: *HR* Heparin 5,000 UNIT/ML VIAL ONE (12:31)
[2021-02-05] MEDS: Amphotericin B Lipid Complex 400 MG in D5% in Water 250 ML IVPB SCH (15:11)
[2021-02-05] MEDS ORDERED: EPINEPHrine 5 MG in D5% in Water 250 ML IVC SCH (15:45)
[2021-02-05] MEDS ORDERED: Sodium Bicarbonate 150 MEQ in Water for inj. (sterile) 1,000 ML IVC SCH (16:00)
[2021-02-05] MEDS ORDERED: Clinimix E 5%-15% SOLUTION 2,000 ML with MVI, adult with vitamin K 10 ML IVC SCH (17:00)
[2021-02-05] MEDS ORDERED: Meropenem 1,000 MG in Water for inj. (sterile) 20 ML IVP SCH (18:00)
[2021-02-05] MEDS ORDERED: Voriconazole 500 MG in 0.9 % Sodium Chloride 250 ML IVPB SCH (18:00)
[2021-02-05 18:13] LABS: Appearance of Body Fluid Hazy (Clear); Volume of Body Fluid 17 mL
[2021-02-05 18:19] LABS: Appearance of Body Fluid Hazy (Clear); Volume of Body Fluid 15 mL
[2021-02-05 20:26] VITALS: TEMP 98.8; O2SAT 93
[2021-02-05 23:23] VITALS: BP 73/57; PULSE 106
[2021-02-06] MEDS ORDERED: Cefepime HCl 2,000 MG in Water for inj. (sterile) 20 ML IVP SCH (06:00)
[2021-02-06] MEDS ORDERED: VORICONAZOLE IVPB SCH (18:00)
[2021-02-06] MEDS ORDERED: SODIUM CHLORIDE 0.9% IVPB SCH (18:00)
[2021-02-07 16:15] LABS: A.galactomannan Ag Index 6.13
== END 2021-02-05 21:33 | disposition expired | DRG 870 ==
LOC: 2NNU → ICNU 01-30 08:18
PROVIDERS: ADMIT Internal Medicine; ATTEND Internal Medicine
PROC: ENDOBRF (2021-02-05 11:00)